=== PATIENT | female | born 2000 | race Caucasian/White ===

== ENCOUNTER 2020-08-13 17:50 | Outpatient (REF) | payer BC, SELFPAY | END 2020-08-13 17:51 | disposition home or self-care (01) | LOC: HO.LAB 17:50 | PROVIDERS: PCP Pediatrics; Visit Provider Internal Medicine | DX: Z20.828 Contact with and (suspected) exposure to other viral communicable diseases (principal) | CPT/HCPCS: C9803; U0003 ==